=== PATIENT | male | born 1955 | race Caucasian/White ===

== ENCOUNTER 2018-07-31 06:47 | Outpatient (CLI) | payer BC, OTHER ==
[2018-07-31 08:13] LABS: ALT (SGPT) 36 U/L (8-55); AST (SGOT) 22 U/L (5-34); Albumin 4.4 g/dL (3.4-4.8); Alkaline Phosphatase 94 U/L (40-150); Anion Gap 13 mmol/L (10-20); BUN (Urea Nitrogen) 13 mg/dL (8.4-25.7); Bilirubin, Total 0.6 mg/dL (0.2-1.2); Calc. Creatinine Clearance 0 mL/min (70-130); Calcium 9.7 mg/dL (7.8-10.44); Carbon Dioxide 32 mmol/L (23-31); Cardiac Risk 3.4 (Less than 4.5); Chloride 99 mmol/L (98-107); Cholesterol 118 mg/dl (< 200 Desired); Estimated GFR-MDRD 63; Globulin 2.8 g/dL (2.4-3.5); Glucose 118 mg/dL (80-115); HDL Cholesterol 35 mg/dL (>60 Neg Risk); LDL Cholesterol, Calculated 51 mg/dL; Potassium 3.8 mmol/L (3.5-5.1); Protein, Total 7.2 g/dL (5.8-8.1); Sodium 140 mmol/L (136-145); Triglycerides 162 mg/dL (Less than 150)
== END 2018-07-31 06:48 | disposition home or self-care (01) ==
LOC: MADLAB 06:47
PROVIDERS: ATTEND Internal Medicine Cardiovascular Disease
DX: E78.00 Pure hypercholesterolemia, unspecified (principal); I10 Essential (primary) hypertension
CPT/HCPCS: 36415; 80053; 80061

== ENCOUNTER 2018-08-07 09:27 | Outpatient (CLI) | payer BC ==
--- NOTE | 2018-08-07 09:48 | RAD ---
EXAM: Chest 2 views: HISTORY: Chest pain since Tuesday COMPARISON: None. FINDINGS: There is a mildly enlarged cardiomediastinal silhouette. There is no evidence of consolidation, mass, or pleural effusion. Degenerative changes are seen in the spine. IMPRESSION: No evidence of acute cardiopulmonary disease
--- NOTE | 2018-08-07 10:08 | RAD ---
RIGHT RIBS THREE VIEWS: HISTORY: Rib pain since Tuesday. FINDINGS: No signs of pneumothorax or evidence of pleural effusion. No rib fractures. No lytic or blastic bon y change. IMPRESSION: Unremarkable right ribs. POS: [facility]
== END 2018-08-07 09:28 | disposition home or self-care (01) ==
LOC: MADRAD 09:27
PROVIDERS: ATTEND Family Medicine
DX: R07.81 Pleurodynia (principal)
CPT/HCPCS: 71046

== ENCOUNTER 2021-08-19 05:54 | Outpatient (CLI) | payer BC ==
[2021-08-19 07:29] LABS: ALT (SGPT) 48 U/L (8-55); AST (SGOT) 38 U/L (5-34); Albumin 4.3 g/dL (3.4-4.8); Alkaline Phosphatase 97 U/L (40-110); Anion Gap 16 mmol/L (10-20); BUN (Urea Nitrogen) 13 mg/dL (8.4-25.7); Bilirubin, Total 0.7 mg/dL (0.2-1.2); Calc. Creatinine Clearance 0 mL/min (70-130); Calcium 9.6 mg/dL (7.8-10.44); Carbon Dioxide 32 mmol/L (23-31); Cardiac Risk 3.2 (Less than 4.5); Chloride 97 mmol/L (98-107); Cholesterol 115 mg/dl (< 200 Desired); Globulin 2.9 g/dL (2.4-3.5); Glucose 133 mg/dL (80-115); HDL Cholesterol 36 mg/dL (>60 Neg Risk); LDL Cholesterol, Calculated 49 mg/dL; Potassium 3.5 mmol/L (3.5-5.1); Protein, Total 7.2 g/dL (5.8-8.1); Sodium 141 mmol/L (136-145); Triglycerides 149 mg/dL (Less than 150)
== END 2021-08-19 05:55 | disposition home or self-care (01) ==
LOC: MADLAB 05:54
PROVIDERS: ATTEND Nurse Practitioner Family
DX: I25.2 Old myocardial infarction (principal); E78.00 Pure hypercholesterolemia, unspecified; I10 Essential (primary) hypertension
CPT/HCPCS: 36415; 80053; 80061

== ENCOUNTER 2022-02-24 05:30 | Outpatient (CLI) | payer BC ==
[2022-02-24 06:12] LABS: ALT (SGPT) 36 U/L (8-55); AST (SGOT) 28 U/L (5-34); Albumin 4.1 g/dL (3.4-4.8); Alkaline Phosphatase 82 U/L (40-110); Anion Gap 17 mmol/L (10-20); BUN (Urea Nitrogen) 13 mg/dL (8.4-25.7); Bilirubin, Total 0.5 mg/dL (0.2-1.2); Calc. Creatinine Clearance 0 mL/min (70-130); Calcium 9.4 mg/dL (7.8-10.44); Carbon Dioxide 25 mmol/L (23-31); Cardiac Risk 3.6 (Less than 4.5); Chloride 101 mmol/L (98-107); Cholesterol 123 mg/dl (< 200 Desired); Estimated GFR 73; Glucose 133 mg/dL (80-115); HDL Cholesterol 34 mg/dL (>60 Neg Risk); LDL Cholesterol, Calculated 15 mg/dL; Potassium 3.6 mmol/L (3.5-5.1); Protein, Total 7.1 g/dL (5.8-8.1); Sodium 139 mmol/L (136-145); Triglycerides 372 mg/dL (Less than 150)
== END 2022-02-24 05:31 | disposition home or self-care (01) ==
LOC: MADLAB 05:30
PROVIDERS: ATTEND Nurse Practitioner Family
DX: E78.00 Pure hypercholesterolemia, unspecified (principal); I10 Essential (primary) hypertension
CPT/HCPCS: 80053; 80061

== ENCOUNTER 2023-11-05 08:48 | Emergency (ER) | payer BC, MEDICARE ==
[2023-11-05] MEDS ORDERED: Lidocaine 1% PF 5 ML VIAL ONE (08:55)
[2023-11-05] MEDS ORDERED: Boostrix 0.5 ML (Tdap) VIAL (>/=7 yrs of age) ONE (08:57)
[2023-11-05] MEDS ORDERED: Sterile Water 10 ML ONE (09:17)
[2023-11-05] MEDS ORDERED: cefTRIAXone (ROCEPHIN) 1 GM VIAL ONE (09:17)
== END 2023-11-05 09:50 | disposition home or self-care (01) ==
LOC: MADERS 08:48
DX: S62.637B Displaced fracture of distal phalanx of left little finger, initial encounter for open fracture (principal); W26.8XXA Contact with other sharp object(s), not elsewhere classified, initial encounter; Z23 Encounter for immunization
CPT/HCPCS: 90471; 90715; 96372; J0696